=== PATIENT | female | born 1960 | race Hispanic/Latino ===

== ENCOUNTER 2017-09-10 15:14 | Inpatient (IN) | payer MEDICARE ==
[2017-09-10 16:45] LABS: Basophils % (Auto) 0.1 % (0.0-1.8); Eosinophils % (Auto) 0.1 % (0.0-4.3); Hematocrit 38.4 % (30.3-42.9); Hemoglobin 12.7 gm/dl (10.1-14.3); Mean Corpuscular HGB Conc 33 % (30-34); Mean Corpuscular Hemoglobin 31 pg (28-32); Mean Corpuscular Volume 93 fl (79-97); Platelet Count 296 K/mm3 (140-440); Red Blood Count 4.14 M/mm3 (3.65-5.03); Red Cell Distribution Width 13.1 % (13.2-15.2); White Blood Count 13.6 K/mm3 (4.5-11.0)
[2017-09-10 17:07] LABS: Calcium 9.5 mg/dL (8.4-10.2); Chloride 80.8 mmol/L (98-107); Potassium 5.6 mmol/L (3.6-5.0)
[2017-09-10] MEDS ORDERED: NACL 0.9% 1000 ML 1,000 ML IV ONE (17:09)
[2017-09-10] MEDS ORDERED: NACL 0.9% 1000 ML 2,000 ML IV ONE (17:12)
--- NOTE | 2017-09-10 17:16 | Emergency Department Report ---
ED General Adult HPI - General Chief complaint: Hyperglycemia Stated complaint: HIGH BLOOD SUGAR Time Seen by Provider: 09/10/17 17:02 Source: patient, family, EMS (ems notes not available at time of chart dictation), RN notes reviewed Mode of arrival: Stretcher Limitations: Altered Mental Status - History of Present Illness Initial comments: This is a 56-year-old female, patient previously unknown to this provider, primary care doctor is Dr. Whitney The patient is brought to the hospital by EMS, altered mental status, she is accompanied by her niece, Mrs. Patti Jefferson; [phone] Patient has a complaint of weakness and hyperglycemia. Her symptoms are constant, and do not have exacerbating or relieving factors that she is aware of. She admits to headache, cough, shortness of breath, dysuria. The patient's niece comes to me separately, and endorses concerned that the patient might be suicidal. She further reports that she is concerned that the patient allowed herself to deliberately become ill by not taking her medications correctly. When I asked the patient about this, she does admit "I question why I am here." She is evasive about suicidality. She does state that she is not homicidal. Laboratory studies demonstrated acidosis, hyperglycemia, anion gap, suggestive of diabetic ketoacidosis. She was found to be in A. fib with RVR, however given her DKA acidosis, this may be metabolically given. She is certainly dehydrated, and appears quite frail, therefore I do not believe that a negative chronotropic/inotrope would be beneficial to her, and I think that aggressive IV fluid resuscitation would be much more beneficial to this patient. Patient is placed on a 1013, I will defer to the inpatient team to follow-up on psychiatric consultation as the patient requires medical stabilization at this time. Case is presented to the critical care physician, Dr. Abreu, who agrees with placement into the intensive care unit. Patient currently on an insulin drip, and care is presents to the Hospital physician, Dr. Salas, who accepted the patient to the medical service for diabetic ketoacidosis -: Gradual Consistency: constant Improves with: none Worsens with: none Associated Symptoms: confusion, cough, headaches, loss of appetite, malaise, shortness of breath, weakness - Related Data Allergies Allergy/AdvReac Type Severity Reaction Status Date / Time zolpidem [From Ambien] Allergy Hives Verified 09/10/17 15:34 acetaminophen AdvReac Vomiting Verified 09/10/17 15:34 [From Tylenol-Codeine #3] butalbital AdvReac Rash Verified 09/10/17 15:34 codeine AdvReac Vomiting Verified 09/10/17 15:34 [From Tylenol-Codeine #3] ibuprofen [From Motrin] AdvReac Vomiting Verified 09/10/17 15:34 latex AdvReac Hives Verified 09/10/17 15:34 orange juice AdvReac Rash Verified 09/10/17 15:34 pravastatin AdvReac Hives Verified 09/10/17 15:34 Sulfa (Sulfonamide AdvReac Hives Verified 09/10/17 15:34 Antibiotics) tomato AdvReac Rash Verified 09/10/17 15:34 plastic tape AdvReac Hives Uncoded 09/10/17 15:34 ED Review of Systems ROS: Stated complaint: HIGH BLOOD SUGAR Other details as noted in HPI Constitutional: malaise Eyes: denies: eye discharge ENT: denies: epistaxis Respiratory: shortness of breath Cardiovascular: denies: chest pain Gastrointestinal: abdominal pain Musculoskeletal: arthralgia, myalgia Skin: denies: lesions Neurological: weakness Psychiatric: depression ED Past Medical Hx - Past Medical History Previous Medical History?: Yes Hx Diabetes: Yes Hx of Cancer: Yes (right breast 2009) Hx Arthritis: Yes - Surgical History Past Surgical History?: Yes Additional Surgical History: Heart surgery to remove tumor 2012 - Social History Smoking Status: Never Smoker Substance Use Type: None ED Physical Exam - General Limitations: Altered Mental Status General appearance: in no apparent distress - Head Head exam: Present: atraumatic, normocephalic - Eye Eye exam: Present: normal appearance - ENT ENT exam: Present: mucous membranes dry - Neck Neck exam: Present: normal inspection, full ROM. Absent: tenderness, meningismus - Respiratory Respiratory exam: Present: normal lung sounds bilaterally. Absent: respiratory distress, wheezes, rales, rhonchi, stridor, chest wall tenderness - Cardiovascular Cardiovascular Exam: Present: tachycardia, irregular rhythm, normal heart sounds. Absent: systolic murmur, diastolic murmur, rubs, gallop - GI/Abdominal GI/Abdominal exam: Present: soft, normal bowel sounds. Absent: distended, tenderness, guarding, rebound, rigid - Extremities Exam Extremities exam: Present: normal inspection, full ROM. Absent: calf tenderness - Back Exam Back exam: Present: normal inspection. Absent: paraspinal tenderness, vertebral tenderness - Neurological Exam Neurological exam: Present: alert (alert to name. Patient cannot multiply 10 10.knows That she is in a hospital.), other (Extraocular movements intact. Tongue midline. No facial droop. Facial sensation intact to light touch in the V1, V2, V3 distribution bilaterally. 5 and 5 strength in 4 extremities.. Sensation is intact to light touch in 4 extremities.) - Psychiatric Psychiatric exam: Present: depressed. Absent: homicidal ideation - Skin Skin exam: Present: warm, dry, intact, normal color. Absent: rash ED Course Vital Signs 09/10/17 09/10/17 09/10/17 17:00 17:15 17:30 Blood Pressure 106/44 101/59 101/59 O2 Sat by Pulse 97 Oximetry 09/10/17 18:03 Blood Pressure 104/51 O2 Sat by Pulse 97 Oximetry ED Medical Decision Making - Lab Data Result diagrams: 09/10/17 Unknown 09/10/17 Unknown Vital Signs 09/10/17 09/10/17 09/10/17 17:00 17:15 17:30 Blood Pressure 106/44 101/59 101/59 O2 Sat by Pulse 97 Oximetry 09/10/17 18:03 Blood Pressure 104/51 O2 Sat by Pulse 97 Oximetry Labs 09/10/17 09/10/17 09/10/17 15:59 17:51 18:37 WBC RBC Hgb Hct MCV MCH MCHC RDW Plt Count Lymph % (Auto) [place] % (Auto) Eos % (Auto) Baso % (Auto) Lymph # [place] # Eos # Baso # Seg Neutrophils % Seg Neutrophils # VBG pH Sodium 126 L Potassium 5.9 H Chloride 79.9 L Carbon Dioxide 8 L* Anion Gap 44 BUN 38 H Creatinine 1.4 H Estimated GFR 39 BUN/Creatinine Ratio 27 Glucose 677 H* POC Glucose > 500 H > 500 H Calcium 9.3 Magnesium 09/10/17 09/10/17 09/10/17 Unknown Unknown Unknown WBC 13.6 H RBC 4.14 Hgb 12.7 Hct 38.4 MCV 93 MCH 31 MCHC 33 RDW 13.1 L Plt Count 296 Lymph % (Auto) 5.5 L [place] % (Auto) 4.8 Eos % (Auto) 0.1 Baso % (Auto) 0.1 Lymph # 0.8 L [place] # 0.7 Eos # 0.0 Baso # 0.0 Seg Neutrophils % 89.5 H Seg Neutrophils # 12.2 H VBG pH 7.163 L* Sodium 127 L Potassium 5.6 H Chloride 80.8 L Carbon Dioxide 11 L Anion Gap 41 BUN 37 H Creatinine 1.4 H Estimated GFR 39 BUN/Creatinine Ratio 26 Glucose 679 H* POC Glucose Calcium 9.5 Magnesium 09/10/17 Unknown WBC RBC Hgb Hct MCV MCH MCHC RDW Plt Count Lymph % (Auto) [place] % (Auto) Eos % (Auto) Baso % (Auto) Lymph # [place] # Eos # Baso # Seg Neutrophils % Seg Neutrophils # VBG pH Sodium Potassium Chloride Carbon Dioxide Anion Gap BUN Creatinine Estimated GFR BUN/Creatinine Ratio Glucose POC Glucose Calcium Magnesium 1.90 - EKG Data 09/10/17 18:56 Atrial fibrillation, rapid ventricular response, 142 bpm, no prior for comparison, abnormal - Radiology Data Radiology results: report reviewed, image reviewed interpreted by me: X-ray the chest is negative. Noncontrast CT scan of the brain is negative - Medical Decision Making Differential diagnosis: Diabetic ketoacidosis, homicidality, suicidality, mood disorder, depression, pneumonia, urinary tract infection, dehydration Critical Care Time: Yes Critical care time in (mins) excluding proc time.: 35 Critical care attestation.: If time is entered above; I have spent that time in minutes in the direct care of this critically ill patient, excluding procedure time. ED Disposition Clinical Impression: DKA (diabetic ketoacidoses), Encephalopathy Disposition: DC-09 OP ADMIT IP TO THIS HOSP Is pt being admited?: Yes Condition: Critical
[2017-09-10] MEDS ORDERED: D50W (25GM) Syringe IV PRN ×3 (17:19→21:40)
[2017-09-10] MEDS ORDERED: NovoLIN R 100 UNITS in NACL 0.9% 99 ML IV SCH ×2 (18:00→22:00)
[2017-09-10 18:30] LABS: Calcium 9.3 mg/dL (8.4-10.2); Chloride 79.9 mmol/L (98-107); Potassium 5.9 mmol/L (3.6-5.0)
--- NOTE | 2017-09-10 18:35 | Cat Scan Report ---
FINAL REPORT EXAM: CT HEAD/BRAIN WO CON HISTORY: off balance for a few days, ams TECHNIQUE: CT head without contrast PRIORS: None. FINDINGS: No acute intra-axial or extra-axial hemorrhage is identified. There is no evidence of midline shift or mass effect. The ventricles and sulci are within normal limits. [place]-white matter differentiation is intact. No acute parenchymal abnormalities seen. Bony calvarium is grossly intact. Visualized portions of the mastoids and paranasal sinuses are unremarkable. IMPRESSION: Negative CT head
[2017-09-10 19:18] LABS: Magnesium 1.7 mg/dL (1.7-2.3); Phosphorous 5.8 mg/dL (2.5-4.5)
[2017-09-10 21:09] LABS: Calcium 8.1 mg/dL (8.4-10.2); Potassium 5.5 mmol/L (3.6-5.0)
[2017-09-10] MEDS ORDERED: MILK OF MAGNESIA PO PRN (21:29)
[2017-09-10] MEDS ORDERED: TYLENOL PO PRN (21:29)
[2017-09-10] MEDS ORDERED: ZOFRAN IV PRN (21:29)
[2017-09-10] MEDS ORDERED: DULCOLAX PR PRN (21:29)
--- NOTE | 2017-09-10 21:29 | History and Physical Report ---
History of Present Illness Date of examination: 09/10/17 Date of admission: 09/10/17 17:59 Chief complaint: cc FEELING VERY WEAK 1 day Altered memtal status 1 day History of present illness: History of Present Illness The patient is brought to the hospital by EMS, altered mental status, she is accompanied by her niece, Mrs. Patti Jefferson; [phone] Patient has a complaint of weakness and hyperglycemia. Her symptoms are constant, and do not have exacerbating or relieving factors that she is aware of. She admits to headache, cough, shortness of breath, dysuria.Nausea present The patient's niece is concerned that the patient might be suicidal. She further reports that she is concerned that the patient allowed herself to deliberately become ill by not taking her medications correctly. She does state that she is not homicidal. Laboratory studies demonstrated acidosis, hyperglycemia, anion gap, suggestive of diabetic ketoacidosis. Past Medical History Previous Medical History?: Yes Hx Diabetes: Yes Hx of Cancer: Yes (right breast 2008) Hx Arthritis: Yes Surgical History Past Surgical History?: Yes Additional Surgical History: Heart surgery to remove tumor 2012 Social History Smoking Status: Never Smoker Substance Use Type: None Review of Systems Stated complaint: HIGH BLOOD SUGAR Other details as noted in HPI Constitutional: malaise Eyes: denies: eye discharge ENT: denies: epistaxis Respiratory: shortness of breath Cardiovascular: denies: chest pain Gastrointestinal: abdominal pain Musculoskeletal: arthralgia, myalgia Skin: denies: lesions Neurological: weakness Psychiatric: depression Medications and Allergies Allergies Allergy/AdvReac Type Severity Reaction Status Date / Time zolpidem [From Ambien] Allergy Hives Verified 09/10/17 15:34 acetaminophen AdvReac Vomiting Verified 09/10/17 15:34 [From Tylenol-Codeine #3] butalbital AdvReac Rash Verified 09/10/17 15:34 codeine AdvReac Vomiting Verified 09/10/17 15:34 [From Tylenol-Codeine #3] ibuprofen [From Motrin] AdvReac Vomiting Verified 09/10/17 15:34 latex AdvReac Hives Verified 09/10/17 15:34 orange juice AdvReac Rash Verified 09/10/17 15:34 pravastatin AdvReac Hives Verified 09/10/17 15:34 Sulfa (Sulfonamide AdvReac Hives Verified 09/10/17 15:34 Antibiotics) tomato AdvReac Rash Verified 09/10/17 15:34 plastic tape AdvReac Hives Uncoded 09/10/17 15:34 Active Meds: Active Medications Dextrose (D50w (25gm) Syringe) 0 ml IV PRN PRN PRN Reason: Hypoglycemia Insulin Human Regular 100 (units/ Sodium Chloride) 100 mls @ 1 mls/hr IV TITR KATHERINE; 1 UNITS/HR PRN Reason: Protocol Last Admin: 09/10/17 20:52 Dose: 1 units/hr, 1 mls/hr Exam - Constitutional Vitals: Temp Pulse Resp BP Pulse Ox 97.7 F 109 H 16 104/51 98 09/10/17 18:58 09/10/17 18:46 09/10/17 18:46 09/10/17 18:46 09/10/17 18:46 General appearance: Present: no acute distress, well-nourished - EENT Eyes: Present: PERRL ENT: hearing intact, clear oral mucosa, other (Tongue dry) - Neck Neck: Present: supple, normal ROM - Respiratory Respiratory effort: normal Respiratory: bilateral: CTA - Cardiovascular Heart rate: 90 Rhythm: regular Heart Sounds: Present: S1 & S2. Absent: rub, click - Extremities Extremities: pulses symmetrical, No edema Peripheral Pulses: within normal limits - Abdominal General gastrointestinal: Present: soft, non-tender, non-distended, normal bowel sounds Female genitourinary: Present: normal - Rectal Rectal Exam: deferred - Integumentary Integumentary: Present: clear, warm, dry - Musculoskeletal Musculoskeletal: gait normal, strength equal bilaterally - Psychiatric Psychiatric: memory intact, depressed - Neurologic Neurologic: CNII-XII intact, moves all extremities - Allied Health Allied health notes reviewed: nursing, case management Results - Labs CBC & Chem 7: 09/11/17 03:43 09/11/17 03:43 Labs: Laboratory Last Values WBC 13.6 K/mm3 (4.5-11.0) H 09/10/17 Unknown RBC 4.14 M/mm3 (3.65-5.03) 09/10/17 Unknown Hgb 12.7 gm/dl (10.1-14.3) 09/10/17 Unknown Hct 38.4 % (30.3-42.9) 09/10/17 Unknown MCV 93 fl (79-97) 09/10/17 Unknown MCH 31 pg (28-32) 09/10/17 Unknown MCHC 33 % (30-34) 09/10/17 Unknown RDW 13.1 % (13.2-15.2) L 09/10/17 Unknown Plt Count 296 K/mm3 (140-440) 09/10/17 Unknown Lymph % (Auto) 5.5 % (13.4-35.0) L 09/10/17 Unknown [place] % (Auto) 4.8 % (0.0-7.3) 09/10/17 Unknown Eos % (Auto) 0.1 % (0.0-4.3) 09/10/17 Unknown Baso % (Auto) 0.1 % (0.0-1.8) 09/10/17 Unknown Lymph # 0.8 K/mm3 (1.2-5.4) L 09/10/17 Unknown [place] # 0.7 K/mm3 (0.0-0.8) 09/10/17 Unknown Eos # 0.0 K/mm3 (0.0-0.4) 09/10/17 Unknown Baso # 0.0 K/mm3 (0.0-0.1) 09/10/17 Unknown Seg Neutrophils % 89.5 % (40.0-70.0) H 09/10/17 Unknown Seg Neutrophils # 12.2 K/mm3 (1.8-7.7) H 09/10/17 Unknown VBG pH 7.163 (7.320-7.420) L* 09/10/17 Unknown Sodium 127 mmol/L (137-145) L 09/10/17 Unknown Potassium 5.6 mmol/L (3.6-5.0) H 09/10/17 Unknown Chloride 80.8 mmol/L (98-107) L 09/10/17 Unknown Carbon Dioxide 11 mmol/L (22-30) L 09/10/17 Unknown Anion Gap 41 mmol/L 09/10/17 Unknown BUN 37 mg/dL (7-17) H 09/10/17 Unknown Creatinine 1.4 mg/dL (0.7-1.2) H 09/10/17 Unknown Estimated GFR 39 ml/min 09/10/17 Unknown BUN/Creatinine Ratio 26 % 09/10/17 Unknown Glucose 679 mg/dL (65-100) H* 09/10/17 Unknown POC Glucose > 500 (70-105) H 09/10/17 18:37 Lactic Acid 1.80 mmol/L (0.7-2.0) 09/10/17 17:36 Calcium 9.5 mg/dL (8.4-10.2) 09/10/17 Unknown Phosphorus 5.80 mg/dL (2.5-4.5) H 09/10/17 17:51 Magnesium 1.90 mg/dL (1.7-2.3) 09/10/17 Unknown Salicylates 0.5 mg/dL (2.8-20.0) L 09/10/17 17:36 Acetaminophen < 15.0 ug/mL (10.0-30.0) 09/10/17 17:36 Short CBC 09/10/17 09/11/17 Range/Units Unknown 03:43 WBC 13.6 H 9.1 (4.5-11.0) K/mm3 Hgb 12.7 10.1 (10.1-14.3) gm/dl Hct 38.4 28.9 L D (30.3-42.9) % Plt Count 296 228 (140-440) K/mm3 BMP 09/10/17 09/10/17 09/10/17 17:51 20:44 23:18 Sodium 126 L 129 L 133 L Potassium 5.9 H 5.5 H 4.0 D Chloride 79.9 L 91.0 L 95.6 L Carbon Dioxide 8 L* 10 L 16 L BUN 38 H 32 H 28 H Creatinine 1.4 H 1.1 1.1 Glucose 677 H* 379 H 219 H Calcium 9.3 8.1 L 8.4 09/10/17 09/11/17 Unknown 03:43 Sodium 127 L 133 L Potassium 5.6 H 4.4 Chloride 80.8 L 100.5 Carbon Dioxide 11 L 16 L BUN 37 H 21 H Creatinine 1.4 H 0.9 Glucose 679 H* 189 H Calcium 9.5 7.5 L Urine 09/11/17 Range/Units 01:54 Urine Color Yellow (Yellow) Urine pH 5.0 (5.0-7.0) Ur Specific [place] 1.010 (1.003-1.030) Urine Protein <15 mg/dl (Negative) mg/dL Urine Glucose (UA) >=500 (Negative) mg/dL - Imaging and Cardiology Chest x-ray: report reviewed (NAF) CT Scan - head: report reviewed (NAF) Assessment and Plan Assessment and plan: The high probability of a clinically significant, sudden or life threatening deterioration of the [CV, pulmonary] system(s) required my full and direct attention, intervention and personal management. The aggregate critical care time was [34] minutes. This time is in addition to time spent performing reported procedures but includes the following: [x] Data Review and interpretation [x] Patient assessment and monitoring of vital signs [x] Documentation [x] Medication orders and management Advance Directives: Yes (Full code) VTE prophylaxis?: Chemical Plan of care discussed with patient/family: Yes - Patient Problems (1) Encephalopathy Current Visit: Yes Status: Acute Plan to address problem: Sec to severe Metabolic Acidosis due to uncontrolled Blood Glucose levels. DKA protocol initiated Bicarb is 8 (2) DKA (diabetic ketoacidoses) Current Visit: Yes Status: Acute Qualifiers: Diabetes mellitus type: type 2 Diabetes mellitus complication detail: D Plan to address problem: DKA protocol initiated.Insulin drip started. IV fluids initiated (3) Dehydration, moderate Current Visit: Yes Status: Acute Plan to address problem: IV fluids for now (4) Suicidal ideation Current Visit: Yes Status: Acute Plan to address problem: consult requested (5) DVT prophylaxis Current Visit: Yes Status: Acute Plan to address problem: On Lovenox
[2017-09-10] MEDS ORDERED: NACL 0.9% 1000 ML 1,000 ML ONE (21:51)
[2017-09-10] MEDS: PERCOCET 5/325 PO PRN (21:54)
[2017-09-10] MEDS ORDERED: D5W/0.45% NACL/KCL 20 MEQ 20 MEQ/1,000 ML BAG IV SCH (22:00)
[2017-09-10] MEDS ORDERED: NACL 0.9% 1000 ML 1,000 ML IV SCH (22:00)
[2017-09-10 22:15] LABS: Magnesium 1.7 mg/dL (1.7-2.3); Phosphorous 5.8 mg/dL (2.5-4.5)
[2017-09-10 23:52] LABS: Calcium 8.4 mg/dL (8.4-10.2); Chloride 95.6 mmol/L (98-107); Magnesium 1.4 mg/dL (1.7-2.3); Phosphorous 2.6 mg/dL (2.5-4.5)
[2017-09-11 02:03] LABS: Urine Drugs of Abuse Note Disclamer
[2017-09-11 02:10] LABS: Bacteria,Urine 1+ /HPF (Negative); Bilirubin,Urine NEG (Negative); Blood,Urine SM (Negative); Ketones,Urine 20 mg/dL (Negative); Leukocyte Esterase,Urine NEG (Negative); Mucus,Urine FEW /HPF; Nitrite,Urine NEG (Negative); Protein,Urine <15 mg/dL mg/dL (Negative); RBC,Urine < 1.0 /HPF (0.0-6.0); Urobilinogen,Urine < 2.0 mg/dL (<2.0)
[2017-09-11 04:05] LABS: Basophils % (Auto) 0.5 % (0.0-1.8); Eosinophils % (Auto) 0.1 % (0.0-4.3); Hematocrit 28.9 % (30.3-42.9); Hemoglobin 10.1 gm/dl (10.1-14.3); Mean Corpuscular HGB Conc 35 % (30-34); Mean Corpuscular Hemoglobin 31 pg (28-32); Mean Corpuscular Volume 89 fl (79-97); Platelet Count 228 K/mm3 (140-440); Red Blood Count 3.24 M/mm3 (3.65-5.03); Red Cell Distribution Width 12.9 % (13.2-15.2); White Blood Count 9.1 K/mm3 (4.5-11.0)
[2017-09-11 04:22] LABS: Anion Gap 21 mmol/L; BUN/Creatinine Ratio 23; Blood Urea Nitrogen 21 mg/dL (7-17); Calcium 7.5 mg/dL (8.4-10.2); Carbon Dioxide 16 mmol/L (22-30); Chloride 100.5 mmol/L (98-107); Glucose 189 mg/dL (65-100); Potassium 4.4 mmol/L (3.6-5.0); Sodium 133 mmol/L (137-145)
[2017-09-11 07:54] LABS: BUN/Creatinine Ratio 23; Blood Urea Nitrogen 18 mg/dL (7-17); Calcium 8.1 mg/dL (8.4-10.2); Carbon Dioxide 23 mmol/L (22-30); Chloride 103.4 mmol/L (98-107); Glucose 91 mg/dL (65-100); Sodium 137 mmol/L (137-145)
[2017-09-11 07:59] LABS: Anion Gap 15 mmol/L
[2017-09-11] MEDS ORDERED: REGLAN IV PRN (09:18)
[2017-09-11] MEDS ORDERED: LEVEMIR SUB-Q ONE (09:18)
--- NOTE | 2017-09-11 09:24 | Progress Note ---
Assessment and Plan Assessment and plan: Patient is a 56-year-old woman with history of type 1 insulin-dependent diabetes mellitus, ?depression, osteoporosis, chronic pain syndrome with multiple drug allergies and right breast cancer who presents with high blood sugars. There was a concern of suicidal ideation so 1013 was ordered by ED physician, Dr. Melo. She was found to have DKA and treated with insulin drip. Current corrected anion gap corrected is 11 so insulin drip stopped and started long-acting Levemir. CT head read as negative, chest x-ray pending -DKA due to noncompliance, resolved with insulin drip: Counseled on compliance, started long-acting insulin -Acute metabolic encephalopathy due to above, resolved -Afib RVR mentioned by ED physician Dr. Melo but sinus tach on EKG: will place pt on monitor tech -Metabolic acidosis anion gap: Treatment with insulin -Suicidal ideation: Consulted mental health, continue 1013 -GI prophylaxis: Added Protonix -DVT prophylaxis: SCDs and subcutaneous Lovenox Full code Disposition: Continue inpatient care, downgrade from ICU to med surg with remote. The high probability of a clinically significant, sudden or life threatening deterioration of the [] system(s) required my full and direct attention, intervention and personal management. The aggregate critical care time was [33] minutes. This time is in addition to time spent performing reported procedures but includes the following: [] Data Review and interpretation [] Patient assessment and monitoring of vital signs [] Documentation [] Medication orders and management History Interval history: Patient was seen and examined. Follow-up on current diagnosis/high blood sugars. Overnight uneventful. Patient denies any chest pain, shortness breath , nausea/vomiting or severe headaches. Imaging, nursing note, chart, labs and old chart reviewed. Discussed with patient. Hospitalist Physical - Physical exam Narrative exam: GEN: WDWN, NAD, AWAKE, ALERT, ORIENTATED x 3 HEENT: NCAT, EOMI, PERRL, OP Clear NECK: supple, no adenopathy, no thyromegaly, no JVD CVS/HEART: Regular tachycardia, NORMAL S1S2, NO JVD, pulses present bilaterally CHEST/LUNGS: CTA B, Symmetrical chest expansion, good air entry bilaterally GI/Abdomen: soft, NTND, good bowel sounds, no guarding or rebound /Bladder: no suprapubic tenderness, no CVA or paraspinal tenderness EXT/Skin: no c/c/e, no obvious rash MSK: FROM x 4 Neuro: CN 2-12 grossly intact, no new focal deficits Psych: anxious - Constitutional Vitals: Temp Pulse Resp BP Pulse Ox 98.5 F 122 H 18 107/66 98 09/11/17 07:15 09/11/17 07:41 09/11/17 07:41 09/11/17 07:41 09/11/17 07:41 General appearance: Present: no acute distress, well-nourished Results - Labs CBC & Chem 7: 09/11/17 03:43 09/11/17 07:25 Labs: Laboratory Last Values WBC 9.1 K/mm3 (4.5-11.0) 09/11/17 03:43 RBC 3.24 M/mm3 (3.65-5.03) L 09/11/17 03:43 Hgb 10.1 gm/dl (10.1-14.3) 09/11/17 03:43 Hct 28.9 % (30.3-42.9) L D 09/11/17 03:43 MCV 89 fl (79-97) 09/11/17 03:43 MCH 31 pg (28-32) 09/11/17 03:43 MCHC 35 % (30-34) H 09/11/17 03:43 RDW 12.9 % (13.2-15.2) L 09/11/17 03:43 Plt Count 228 K/mm3 (140-440) 09/11/17 03:43 Lymph % (Auto) 15.0 % (13.4-35.0) 09/11/17 03:43 [place] % (Auto) 10.1 % (0.0-7.3) H 09/11/17 03:43 Eos % (Auto) 0.1 % (0.0-4.3) 09/11/17 03:43 Baso % (Auto) 0.5 % (0.0-1.8) 09/11/17 03:43 Lymph # 1.4 K/mm3 (1.2-5.4) 09/11/17 03:43 [place] # 0.9 K/mm3 (0.0-0.8) H 09/11/17 03:43 Eos # 0.0 K/mm3 (0.0-0.4) 09/11/17 03:43 Baso # 0.0 K/mm3 (0.0-0.1) 09/11/17 03:43 Seg Neutrophils % 74.3 % (40.0-70.0) H 09/11/17 03:43 Seg Neutrophils # 6.8 K/mm3 (1.8-7.7) 09/11/17 03:43 VBG pH 7.163 (7.320-7.420) L* 09/10/17 Unknown Sodium 137 mmol/L (137-145) 09/11/17 07:25 Potassium 4.0 mmol/L (3.6-5.0) 09/11/17 07:25 Chloride 103.4 mmol/L (98-107) 09/11/17 07:25 Carbon Dioxide 23 mmol/L (22-30) D 09/11/17 07:25 Anion Gap 15 mmol/L 09/11/17 07:25 BUN 18 mg/dL (7-17) H 09/11/17 07:25 Creatinine 0.8 mg/dL (0.7-1.2) 09/11/17 07:25 Estimated GFR > 60 ml/min 09/11/17 07:25 BUN/Creatinine Ratio 23 % 09/11/17 07:25 Glucose 91 mg/dL (65-100) 09/11/17 07:25 POC Glucose 97 (70-105) 09/11/17 08:07 Hemoglobin A1c 9.1 % (4-6) H 09/10/17 Unknown Lactic Acid 1.80 mmol/L (0.7-2.0) 09/10/17 17:36 Calcium 8.1 mg/dL (8.4-10.2) L 09/11/17 07:25 Phosphorus 2.60 mg/dL (2.5-4.5) D 09/10/17 23:18 Magnesium 1.90 mg/dL (1.7-2.3) 09/10/17 Unknown Urine Color Yellow (Yellow) 09/11/17 01:54 Urine Turbidity Clear (Clear) 09/11/17 01:54 Urine pH 5.0 (5.0-7.0) 09/11/17 01:54 Ur Specific [place] 1.010 (1.003-1.030) 09/11/17 01:54 Urine Protein <15 mg/dl mg/dL (Negative) 09/11/17 01:54 Urine Glucose (UA) >=500 mg/dL (Negative) 09/11/17 01:54 Urine Ketones 20 mg/dL (Negative) 09/11/17 01:54 Urine Blood Sm (Negative) 09/11/17 01:54 Urine Nitrite Neg (Negative) 09/11/17 01:54 Ur Reducing Substances Not Reportable 09/11/17 01:54 Urine Bilirubin Neg (Negative) 09/11/17 01:54 Urine Ictotest Not Reportable 09/11/17 01:54 Urine Urobilinogen < 2.0 mg/dL (<2.0) 09/11/17 01:54 Ur Leukocyte Esterase Neg (Negative) 09/11/17 01:54 Urine WBC (Auto) 1.0 /HPF (0.0-6.0) 09/11/17 01:54 Urine RBC (Auto) < 1.0 /HPF (0.0-6.0) 09/11/17 01:54 U Epithel Cells (Auto) 3.0 /HPF (0-13.0) 09/11/17 01:54 Urine Bacteria (Auto) 1+ /HPF (Negative) 09/11/17 01:54 Urine Mucus Few /HPF 09/11/17 01:54 Urine Yeast (Budding) Few /HPF 09/11/17 01:54 Salicylates 0.5 mg/dL (2.8-20.0) L 09/10/17 17:36 Urine Opiates Screen Presumptive negative 09/11/17 01:54 Urine Methadone Screen Presumptive negative 09/11/17 01:54 Acetaminophen < 15.0 ug/mL (10.0-30.0) 09/10/17 17:36 Ur Barbiturates Screen Presumptive negative 09/11/17 01:54 Ur Phencyclidine Scrn Presumptive negative 09/11/17 01:54 Ur Amphetamines Screen Presumptive negative 09/11/17 01:54 U Benzodiazepines Scrn Presumptive positive 09/11/17 01:54 Urine Cocaine Screen Presumptive negative 09/11/17 01:54 U Marijuana (THC) Screen Presumptive negative 09/11/17 01:54 Drugs of Abuse Note Disclamer 09/11/17 01:54
[2017-09-11] MEDS ORDERED: D50W (25GM) Syringe IV PRN (09:31)
--- NOTE | 2017-09-11 09:31 | XRay Report ---
AP CHEST :09/10/17 17:11:00 CLINICAL: Cough. COMPARISON:None. FINDINGS: Normal heart and pulmonary vasculature. Median sternotomy wires. The lungs are normally expanded and clear. The bones and soft tissues are unremarkable. Right upper quadrant surgical clips. IMPRESSION: No acute cardiopulmonary process.
[2017-09-11] MEDS: PROTONIX PO SCH (09:52)
[2017-09-11] MEDS ORDERED: NACL 0.9% 1000 ML 1,000 ML IV SCH (10:00)
[2017-09-11] MEDS: NOVOLOG SUB-Q SCH ×2 (12:31→18:46)
--- NOTE | 2017-09-11 16:42 | Consultation ---
History of Present Illness Consult date: 09/11/17 Medications and Allergies Allergies Allergy/AdvReac Type Severity Reaction Status Date / Time zolpidem [From Ambien] Allergy Hives Verified 09/10/17 15:34 acetaminophen AdvReac Vomiting Verified 09/10/17 15:34 [From Tylenol-Codeine #3] butalbital AdvReac Rash Verified 09/10/17 15:34 codeine AdvReac Vomiting Verified 09/10/17 15:34 [From Tylenol-Codeine #3] ibuprofen [From Motrin] AdvReac Vomiting Verified 09/10/17 15:34 latex AdvReac Hives Verified 09/10/17 15:34 orange juice AdvReac Rash Verified 09/10/17 15:34 pravastatin AdvReac Hives Verified 09/10/17 15:34 Sulfa (Sulfonamide AdvReac Hives Verified 09/10/17 15:34 Antibiotics) tomato AdvReac Rash Verified 09/10/17 15:34 plastic tape AdvReac Hives Uncoded 09/10/17 15:34 Active Meds: Active Medications Bisacodyl (Dulcolax) 10 mg GA QDAY PRN PRN Reason: Constipation unrelieved by [facility] Dextrose (D50w (25gm) Syringe) 50 ml IV PRN PRN PRN Reason: Hypoglycemia Sodium Chloride (Nacl 0.9% 1000 Ml) 1,000 mls @ 100 mls/hr IV DIRECT KATHERINE Insulin Aspart (Novolog) 0 units SUB-Q Q6HR KATHERINE PRN Reason: Protocol Last Admin: 09/11/17 12:31 Dose: 3 units Insulin Detemir (Levemir) 10 units SUB-Q QHS KATHERINE Magnesium Hydroxide (Milk Of Magnesia) 30 ml PO Q4H PRN PRN Reason: Constipation Metoclopramide HCl (Reglan) 10 mg IV Q8H PRN PRN Reason: Nausea And Vomiting Morphine Sulfate (Morphine) 2 mg IV Q4H PRN PRN Reason: Pain, Moderate (4-6) Ondansetron HCl (Zofran) 4 mg IV Q8H PRN PRN Reason: N/V unrelieved by Reglan Oxycodone/Acetaminophen (Percocet 5/325) 1 tab PO Q6H PRN PRN Reason: Pain, Moderate (4-6) Last Admin: 09/10/17 21:54 Dose: 1 tab Pantoprazole Sodium (Protonix) 40 mg PO QDAY KATHERINE Last Admin: 09/11/17 09:52 Dose: 40 mg Physical Examination Vital signs: Vital Signs BP 106/44 09/10/17 17:00 Results - Laboratory Findings CBC and BMP: 09/11/17 03:43 09/11/17 07:25 Abnormal lab findings: Abnormal Labs 09/10/17 09/10/17 09/10/17 18:37 20:44 20:44 WBC RBC Hct MCHC RDW Lymph % (Auto) [place] % (Auto) Lymph # [place] # Seg Neutrophils % Seg Neutrophils # VBG pH Sodium 129 L Potassium 5.5 H Chloride 91.0 L Carbon Dioxide 10 L BUN 32 H Creatinine Glucose 379 H POC Glucose > 500 H Hemoglobin A1c Calcium 8.1 L Phosphorus 5.80 H Magnesium 09/10/17 09/10/17 09/10/17 22:05 23:15 23:18 WBC RBC Hct MCHC RDW Lymph % (Auto) [place] % (Auto) Lymph # [place] # Seg Neutrophils % Seg Neutrophils # VBG pH Sodium 133 L Potassium Chloride 95.6 L Carbon Dioxide 16 L BUN 28 H Creatinine Glucose 219 H POC Glucose 432 H 218 H Hemoglobin A1c Calcium Phosphorus Magnesium 09/10/17 09/10/17 09/10/17 23:18 Unknown Unknown WBC 13.6 H RBC Hct MCHC RDW 13.1 L Lymph % (Auto) 5.5 L [place] % (Auto) Lymph # 0.8 L [place] # Seg Neutrophils % 89.5 H Seg Neutrophils # 12.2 H VBG pH Sodium 127 L Potassium 5.6 H Chloride 80.8 L Carbon Dioxide 11 L BUN 37 H Creatinine 1.4 H Glucose 679 H* POC Glucose Hemoglobin A1c Calcium Phosphorus Magnesium 1.40 L 09/10/17 09/10/17 09/11/17 Unknown Unknown 00:51 WBC RBC Hct MCHC RDW Lymph % (Auto) [place] % (Auto) Lymph # [place] # Seg Neutrophils % Seg Neutrophils # VBG pH 7.163 L* Sodium Potassium Chloride Carbon Dioxide BUN Creatinine Glucose POC Glucose 108 H Hemoglobin A1c 9.1 H Calcium Phosphorus Magnesium 09/11/17 09/11/17 09/11/17 02:33 03:43 03:43 WBC RBC 3.24 L Hct 28.9 L D MCHC 35 H RDW 12.9 L Lymph % (Auto) [place] % (Auto) 10.1 H Lymph # [place] # 0.9 H Seg Neutrophils % 74.3 H Seg Neutrophils # VBG pH Sodium 133 L Potassium Chloride Carbon Dioxide 16 L BUN 21 H Creatinine Glucose 189 H POC Glucose 125 H Hemoglobin A1c Calcium 7.5 L Phosphorus Magnesium 09/11/17 09/11/17 09/11/17 04:30 05:45 07:25 WBC RBC Hct MCHC RDW Lymph % (Auto) [place] % (Auto) Lymph # [place] # Seg Neutrophils % Seg Neutrophils # VBG pH Sodium Potassium Chloride Carbon Dioxide BUN 18 H Creatinine Glucose POC Glucose 180 H 136 H Hemoglobin A1c Calcium 8.1 L Phosphorus Magnesium 09/11/17 09/11/17 09:19 11:35 WBC RBC Hct MCHC RDW Lymph % (Auto) [place] % (Auto) Lymph # [place] # Seg Neutrophils % Seg Neutrophils # VBG pH Sodium Potassium Chloride Carbon Dioxide BUN Creatinine Glucose POC Glucose 195 H 187 H Hemoglobin A1c Calcium Phosphorus Magnesium
[2017-09-11] MEDS: PERCOCET 5/325 PO PRN (22:46)
[2017-09-11] MEDS: LEVEMIR SUB-Q SCH (23:17)
[2017-09-12] MEDS: NOVOLOG SUB-Q SCH ×4 (01:06→18:11)
[2017-09-12] MEDS ORDERED: CARDIZEM IV ONE ×2 (06:57→07:42)
[2017-09-12] MEDS ORDERED: CARDIZEM ONE (07:05)
[2017-09-12] MEDS: CARDIZEM PO SCH ×2 (09:00→12:30)
[2017-09-12] MEDS: PROTONIX PO SCH (10:05)
[2017-09-12] MEDS ORDERED: LOVENOX SUB-Q SCH (12:00)
[2017-09-12] MEDS: LOVENOX SUB-Q SCH ×2 (12:30→22:00)
[2017-09-12] MEDS: CARDIZEM/D5W 100MG/100ML 100 MG/100 ML BAG IV SCH (13:21)
--- NOTE | 2017-09-12 13:58 | Progress Note ---
Assessment and Plan Assessment and plan: 56-year-old female with medical history significant for diabetes mellitus, depression, atrial fibrillation, s/p post cardiac tumor removal presented to ED for DKA and afib with RVR. Patient is on 1013 for concern of suicidal ideation. DKA - Managed according to [facility] protocol and now resolved - Chronic settings to insulin Metabolic encephalopathy - Resolved - And has dementia Afib with RVR, patient stated she has history of A. fib and cardiac tumor removal - Cardiology consulted - Echo will be done and on therapeutic Lovenox Suicidal ideation - Patient is 1013 and mental health consulted - Patient wants to go home -GI prophylaxis: Added Protonix DVT prophylaxis: SCDs and therapeutic Lovenox Full code Disposition: - Patient is still in the ED hold for CCU admit. Disposition Plan: Pending ICU bed History Interval history: Patient was seen and evaluated this morning, patient is lying comfortably, no new complaints. Patient said she had a history of tumor removal from her heart and has history of atrial fibrillation and on medication. Patient said she has memory problems and doesn't remember what medication she has been taking. Hospitalist Physical - Physical exam Narrative exam: Not in cardiopulmonary distress. The patient appeared friable. Vital signs as documented. Head exam is unremarkable. No scleral icterus . Neck is without jugular venous distension, thyromegaly, or carotid bruits. Lungs are clear to auscultation. Cardiac exam reveals irregular heart rate. Tachycardia. Abdominal exam reveals normal bowel sounds, no masses, no organomegaly and no aortic enlargement. Extremities are nonedematous and both femoral and pedal pulses are normal. JOB CHECKER: Alert and oriented 3. No focal weakness. - Constitutional Vitals: Temp Pulse Resp BP Pulse Ox 98.5 F 134 H 18 119/65 98 09/11/17 07:15 09/12/17 08:59 09/12/17 11:28 09/12/17 07:29 09/12/17 11:28 General appearance: Present: no acute distress, well-nourished Results - Labs CBC & Chem 7: 09/11/17 03:43 09/11/17 07:25 Labs: Laboratory Last Values WBC 9.1 K/mm3 (4.5-11.0) 09/11/17 03:43 RBC 3.24 M/mm3 (3.65-5.03) L 09/11/17 03:43 Hgb 10.1 gm/dl (10.1-14.3) 09/11/17 03:43 Hct 28.9 % (30.3-42.9) L D 09/11/17 03:43 MCV 89 fl (79-97) 09/11/17 03:43 MCH 31 pg (28-32) 09/11/17 03:43 MCHC 35 % (30-34) H 09/11/17 03:43 RDW 12.9 % (13.2-15.2) L 09/11/17 03:43 Plt Count 228 K/mm3 (140-440) 09/11/17 03:43 Lymph % (Auto) 15.0 % (13.4-35.0) 09/11/17 03:43 [place] % (Auto) 10.1 % (0.0-7.3) H 09/11/17 03:43 Eos % (Auto) 0.1 % (0.0-4.3) 09/11/17 03:43 Baso % (Auto) 0.5 % (0.0-1.8) 09/11/17 03:43 Lymph # 1.4 K/mm3 (1.2-5.4) 09/11/17 03:43 [place] # 0.9 K/mm3 (0.0-0.8) H 09/11/17 03:43 Eos # 0.0 K/mm3 (0.0-0.4) 09/11/17 03:43 Baso # 0.0 K/mm3 (0.0-0.1) 09/11/17 03:43 Seg Neutrophils % 74.3 % (40.0-70.0) H 09/11/17 03:43 Seg Neutrophils # 6.8 K/mm3 (1.8-7.7) 09/11/17 03:43 VBG pH 7.163 (7.320-7.420) L* 09/10/17 Unknown Sodium 137 mmol/L (137-145) 09/11/17 07:25 Potassium 4.0 mmol/L (3.6-5.0) 09/11/17 07:25 Chloride 103.4 mmol/L (98-107) 09/11/17 07:25 Carbon Dioxide 23 mmol/L (22-30) D 09/11/17 07:25 Anion Gap 15 mmol/L 09/11/17 07:25 BUN 18 mg/dL (7-17) H 09/11/17 07:25 Creatinine 0.8 mg/dL (0.7-1.2) 09/11/17 07:25 Estimated GFR > 60 ml/min 09/11/17 07:25 BUN/Creatinine Ratio 23 % 09/11/17 07:25 Glucose 91 mg/dL (65-100) 09/11/17 07:25 POC Glucose 207 (70-105) H 09/12/17 11:44 Hemoglobin A1c 9.1 % (4-6) H 09/10/17 Unknown Lactic Acid 1.80 mmol/L (0.7-2.0) 09/10/17 17:36 Calcium 8.1 mg/dL (8.4-10.2) L 09/11/17 07:25 Phosphorus 2.60 mg/dL (2.5-4.5) D 09/10/17 23:18 Magnesium 1.90 mg/dL (1.7-2.3) 09/10/17 Unknown Urine Color Yellow (Yellow) 09/11/17 01:54 Urine Turbidity Clear (Clear) 09/11/17 01:54 Urine pH 5.0 (5.0-7.0) 09/11/17 01:54 Ur Specific [place] 1.010 (1.003-1.030) 09/11/17 01:54 Urine Protein <15 mg/dl mg/dL (Negative) 09/11/17 01:54 Urine Glucose (UA) >=500 mg/dL (Negative) 09/11/17 01:54 Urine Ketones 20 mg/dL (Negative) 09/11/17 01:54 Urine Blood Sm (Negative) 09/11/17 01:54 Urine Nitrite Neg (Negative) 09/11/17 01:54 Ur Reducing Substances Not Reportable 09/11/17 01:54 Urine Bilirubin Neg (Negative) 09/11/17 01:54 Urine Ictotest Not Reportable 09/11/17 01:54 Urine Urobilinogen < 2.0 mg/dL (<2.0) 09/11/17 01:54 Ur Leukocyte Esterase Neg (Negative) 09/11/17 01:54 Urine WBC (Auto) 1.0 /HPF (0.0-6.0) 09/11/17 01:54 Urine RBC (Auto) < 1.0 /HPF (0.0-6.0) 09/11/17 01:54 U Epithel Cells (Auto) 3.0 /HPF (0-13.0) 09/11/17 01:54 Urine Bacteria (Auto) 1+ /HPF (Negative) 09/11/17 01:54 Urine Mucus Few /HPF 09/11/17 01:54 Urine Yeast (Budding) Few /HPF 09/11/17 01:54 Salicylates 0.5 mg/dL (2.8-20.0) L 09/10/17 17:36 Urine Opiates Screen Presumptive negative 09/11/17 01:54 Urine Methadone Screen Presumptive negative 09/11/17 01:54 Acetaminophen < 15.0 ug/mL (10.0-30.0) 09/10/17 17:36 Ur Barbiturates Screen Presumptive negative 09/11/17 01:54 Ur Phencyclidine Scrn Presumptive negative 09/11/17 01:54 Ur Amphetamines Screen Presumptive negative 09/11/17 01:54 U Benzodiazepines Scrn Presumptive positive 09/11/17 01:54 Urine Cocaine Screen Presumptive negative 09/11/17 01:54 U Marijuana (THC) Screen Presumptive negative 09/11/17 01:54 Drugs of Abuse Note Disclamer 09/11/17 01:54
--- NOTE | 2017-09-12 18:56 | Consultation ---
CARDIOLOGY CONSULTATION The patient is seen in the Emergency Room. REFERRING PHYSICIAN: Hospitalist service. REASON FOR CONSULTATION: Advice an opinion regarding atrial fibrillation. HISTORY OF PRESENT ILLNESS: The patient is a pleasant 56-year-old female brought to the Emergency Room with altered mental status by her niece. Complains of weakness and high blood sugars. The patient's niece concerned about suicidal behavior. Upon approach. The patient denies any chest pain or shortness of breath. States she feels fine, just tired, no syncope or presyncope. No fevers, chills, nausea or vomiting. ALLERGIES: SHE HAS MULTIPLE DRUG AND FOOD ALLERGIES. THESE WERE ALL REVIEWED. MEDICATIONS: Inpatient and outpatient medications reviewed. REVIEW OF SYSTEMS: As per HPI. PAST MEDICAL HISTORY: History of heart surgery remove a tumor in 2012 at [facility]; details are unclear to me. Denies any history of coronary disease or cardiomyopathy. Other medical history includes diabetes, depression, osteoporosis, chronic pain syndrome and right breast cancer. PHYSICAL EXAMINATION: VITAL SIGNS: Blood pressure is 119/65, heart rate is in the 130s, atrial fibrillation, rapid ventricular response, O2 sats 90. She appears very comfortable, no apparent distress, alert and oriented x 2. HEENT: Sclerae are anicteric. NECK: Supple. No mass or JVD. CHEST: Clear to auscultation bilaterally. Good air movement. CARDIOVASCULAR: Tachy, S1, S2 irregular. ABDOMEN: Soft, nontender, nondistended. EXTREMITIES: No significant edema. SKIN: Warm, dry and intact. No rashes. LABORATORY DATA: EKG shows atrial fibrillation with rapid ventricular response. WBC is 9.1, hemoglobin 10.1, hematocrit 28.9, platelets 228. Sodium 133, bicarbonate 16, creatinine 1.1, glucose 219. Hemoglobin A1c is 9.1. CONCLUSION: The patient is a pleasant 56-year-old female: 1. Uncontrolled diabetes, diabetic ketoacidosis. 2. Acute metabolic encephalopathy. 3. Atrial fibrillation with rapid response. I believe this is new for patient. 4. Suicidal ideation. 5. History of cardiac tumor excision in 2012. At this point, the patient is actually stable. We will increase p.o. Cardizem dosage. Heart rate at this point is in the 100 range. We will check an echocardiogram. We will initiate Lovenox therapy as I do not see any contraindication to systemic anticoagulation, and hopefully as her DKA improves, her atrial fibrillation will also improve. Consider ischemic workup prior to discharge. My findings and plan of care discussed at length with the patient. All questions and concerns were addressed. Thank you for this consultation. JOB# [id number] SBJose/NTS
--- NOTE | 2017-09-12 19:36 | Consultation ---
History of Present Illness - Reason for Consult Consult date: 09/12/17 Reason for consult: psychiatric evaluation - Chief Complaint Chief complaint: 56 year old female seen in the ER. She is waiting for an ICU bed. She presented with weakness and AMS. She was determined to be in DKA and also A Fib with RVR. Shortly after arrival to the ER the record indicates the patient's niece expressed concerned that the patient might be suicidal. She further reports that she is concerned that the patient allowed herself to deliberately become ill by not taking her medications correctly. This was discussed with the patient . She denies suicidal ideation. She reports chronic depression and anxiety, including panic attacks. She takes valium 5mg bid and an unknown medication at 100mg daily for OCD. She admits to not eating right. She has a 30 year history of type 1 diabetes. She states she continues to take insulin and check her blood sugars like she should. She denies drug or alcohol use. No psychotic symptoms. No history of manic symptoms. Medications and Allergies Allergies Allergy/AdvReac Type Severity Reaction Status Date / Time zolpidem [From Ambien] Allergy Hives Verified 09/10/17 15:34 acetaminophen AdvReac Vomiting Verified 09/10/17 15:34 [From Tylenol-Codeine #3] butalbital AdvReac Rash Verified 09/10/17 15:34 codeine AdvReac Vomiting Verified 09/10/17 15:34 [From Tylenol-Codeine #3] ibuprofen [From Motrin] AdvReac Vomiting Verified 09/10/17 15:34 latex AdvReac Hives Verified 09/10/17 15:34 orange juice AdvReac Rash Verified 09/10/17 15:34 pravastatin AdvReac Hives Verified 09/10/17 15:34 Sulfa (Sulfonamide AdvReac Hives Verified 09/10/17 15:34 Antibiotics) tomato AdvReac Rash Verified 09/10/17 15:34 plastic tape AdvReac Hives Uncoded 09/10/17 15:34 Active Meds: Active Medications Bisacodyl (Dulcolax) 10 mg ID QDAY PRN PRN Reason: Constipation unrelieved by [facility] Dextrose (D50w (25gm) Syringe) 50 ml IV PRN PRN PRN Reason: Hypoglycemia Last Admin: 09/12/17 07:15 Dose: 50 ml Enoxaparin Sodium (Lovenox) 60 mg SUB-Q Q12HR KATHERINE Last Admin: 09/12/17 12:30 Dose: 60 mg Sodium Chloride (Nacl 0.9% 1000 Ml) 1,000 mls @ 100 mls/hr IV DIRECT KATHERINE Last Admin: 09/12/17 11:43 Dose: 100 mls/hr Sodium Chloride (Nacl 0.9% 1000 Ml) 1,000 mls @ 75 mls/hr IV DIRECT KATHERINE Diltiazem HCl (Cardizem/D5w 100mg/100ml) 100 mg in 100 mls @ 5 mls/hr IV TITR KATHERINE; 5 MG/HR PRN Reason: Protocol Last Admin: 09/12/17 13:21 Dose: 5 mg/hr, 5 mls/hr Insulin Aspart (Novolog) 0 units SUB-Q Q6HR KATHERINE PRN Reason: Protocol Last Admin: 09/12/17 18:11 Dose: 4 units Insulin Detemir (Levemir) 10 units SUB-Q QHS KATHERINE Last Admin: 09/11/17 23:17 Dose: 10 units Magnesium Hydroxide (Milk Of Magnesia) 30 ml PO Q4H PRN PRN Reason: Constipation Metoclopramide HCl (Reglan) 10 mg IV Q8H PRN PRN Reason: Nausea And Vomiting Morphine Sulfate (Morphine) 2 mg IV Q4H PRN PRN Reason: Pain, Moderate (4-6) Ondansetron HCl (Zofran) 4 mg IV Q8H PRN PRN Reason: N/V unrelieved by Reglan Last Admin: 09/11/17 22:47 Dose: 4 mg Oxycodone/Acetaminophen (Percocet 5/325) 1 tab PO Q6H PRN PRN Reason: Pain, Moderate (4-6) Last Admin: 09/11/17 22:46 Dose: 1 tab Pantoprazole Sodium (Protonix) 40 mg PO QDAY REPLACED BY [facility] Last Admin: 09/12/17 10:05 Dose: 40 mg Past psychiatric history - Past Medical History Past Medical History: atrial fib, diabetes - past Psychiatric treatment and history Psych: Anxiety, Depression psychiatric treatment history: managed by PCP denies suicide attempts She does not know the name of her OCD medication - Social History Social history: lives with family Mental Status Exam - Vital signs Last Vital Signs Temp 98.5 F 09/11/17 07:15 Pulse 97 H 09/12/17 16:00 Resp 14 09/12/17 16:00 BP 105/63 09/12/17 16:00 Pulse Ox 95 09/12/17 16:39 - Exam Orientation: time, place, person Affect: anxious Mood: congruent with affect Thought content: other (no SI/HI) Thought Process: Intact Perceptions: none Speech: normal rate and pattern Concentration: focused Motor activity: normal Level of consciousness: alert Memory: Intact Sleep Symptoms: Difficulty Falling Asleep Interaction: cooperative Results Result Diagrams: 09/11/17 03:43 09/11/17 07:25 Abnormal lab results 09/11/17 09/12/17 09/12/17 Range/Units 22:59 01:07 07:42 POC Glucose 183 H 119 H < 40 L (70-105) 09/12/17 09/12/17 09/12/17 Range/Units 08:46 11:44 18:06 POC Glucose 233 H 207 H 224 H (70-105) All other labs normal. Assessment and Plan Assessment and plan: Impression: Obsessive compulsive disorder by history depressive disorder Recommendations: Medications need to be reconciled. She prefers to stay on her current OCD medication (the bottle is locked up with her belongings). She takes valium 5mg bid at home but will hold off since she is taking 2 opiate based medications. Psych team will determine if she meets criteria for 1013 tomorrow.
[2017-09-12] MEDS: PERCOCET 5/325 PO PRN (21:41)
[2017-09-12] MEDS: LEVEMIR SUB-Q SCH (23:48)
[2017-09-13] MEDS: NOVOLOG SUB-Q SCH ×4 (02:46→17:42)
[2017-09-13] MEDS: NACL 0.9% 1000 ML 1,000 ML IV SCH ×2 (04:00→14:18)
[2017-09-13] MEDS: PERCOCET 5/325 PO PRN (05:32)
[2017-09-13] MEDS: CARDIZEM/D5W 100MG/100ML 100 MG/100 ML BAG IV SCH (08:43)
[2017-09-13] MEDS: PROTONIX PO SCH (10:45)
[2017-09-13] MEDS: LOVENOX SUB-Q SCH ×2 (10:53→22:00)
--- NOTE | 2017-09-13 13:11 | Progress Note ---
Subjective - Reason for Consult Consult date: 09/13/17 Reason for consult: Psychiatry Follow-up - Chief Complaint Chief complaint: "I am not suicidal" 56 year old female seen in the ER. She is waiting for an ICU bed. She presented with weakness and AMS. She was determined to be in DKA and also A Fib with RVR. Today patient is calm and cooperative during assessment. She stated that she isn 't suicidal. She stated that she never intentionally stop taking her medications to "." She denies pass suicidal attempts or SI's. She stated taking medication for depression and OCD prescribed by her PCP. She is aware why she was admitted to the hospital (RVR/A-Fib/Hyperglycemia). She denies SI/HI 's, AVH's, but rate her depression 5/10, with 10 being the worse. Mental Status Exam - Vital signs Last Vital Signs Temp 97.7 F 09/13/17 08:33 Pulse 84 09/13/17 10:00 Resp 18 09/13/17 12:31 BP 166/99 09/13/17 11:01 Pulse Ox 100 09/13/17 12:31 - Exam Narrative exam: MSE: Appearance: calm, cooperative Behavior: regular eye contact Speech: regular rate and tone Mood: "okay" Affect: congruent to mood Thought Process: circumstantial Thought Content: denies SI/HI's and AVH's Motor Activity: ambulatory Cognition: A/O x3 Insight: fair Judgment: fair Assessment and Plan Impression: Historical Dx: OCD/Depressive DO. Today patient is calm and cooperative during assessment. Recommendations/Plan: Continue 1013 until collateral information can be obtained from her niece. Medications need to be reconciled. She prefers to stay on her current OCD medication (the bottle is locked up with her belongings). She takes Valium 5mg bid at home but will hold off since she is taking 2 opiate based medications.
--- NOTE | 2017-09-13 15:07 | Progress Note ---
Assessment and Plan Assessment and plan: 56-year-old female with medical history significant for diabetes mellitus, depression, atrial fibrillation, s/p post cardiac tumor removal presented to ED for DKA and afib with RVR. Patient is on 1013 for concern of suicidal ideation. DKA - Managed according to DKA protocol and now resolved - Sliding scale insulin Metabolic encephalopathy - Resolved - And has dementia Afib with RVR, patient stated she has history of A. fib and cardiac tumor removal - Cardiology consulted - on therapeutic Lovenox - Echo is pending Suicidal ideation - Patient is 1013 and mental health consulted -GI prophylaxis: On Protonix DVT prophylaxis: SCDs and therapeutic Lovenox Full code Disposition: - Patient is still in the ED hold for CCU admit. The high probability of a clinically significant, sudden or life threatening deterioration of the [cardiovascular] system(s) required my full and direct attention, intervention and personal management. The aggregate critical care time was [31] minutes. This time is in addition to time spent performing reported procedures but includes the following: [x] Data Review and interpretation [x] Patient assessment and monitoring of vital signs [x] Documentation [x] Medication orders and management History Interval history: Patient was seen and evaluated this morning, patient is lying comfortably, no new complaints. Hospitalist Physical - Physical exam Narrative exam: Not in cardiopulmonary distress. The patient appeared friable. Vital signs as documented. Head exam is unremarkable. No scleral icterus . Neck is without jugular venous distension, thyromegaly, or carotid bruits. Lungs are clear to auscultation. Cardiac exam reveals irregular heart rate. Tachycardia. Abdominal exam reveals normal bowel sounds, no masses, no organomegaly and no aortic enlargement. Extremities are nonedematous and both femoral and pedal pulses are normal. SINGER BACK TENDER: Alert and oriented 3. No focal weakness. - Constitutional Vitals: Temp Pulse Resp BP Pulse Ox 97.7 F 106 H 15 136/74 97 09/13/17 08:33 09/13/17 14:00 09/13/17 14:00 09/13/17 14:00 09/13/17 14:00 General appearance: Present: no acute distress, well-nourished Results - Labs CBC & Chem 7: 09/11/17 03:43 09/11/17 07:25 Labs: Laboratory Last Values WBC 9.1 K/mm3 (4.5-11.0) 09/11/17 03:43 RBC 3.24 M/mm3 (3.65-5.03) L 09/11/17 03:43 Hgb 10.1 gm/dl (10.1-14.3) 09/11/17 03:43 Hct 28.9 % (30.3-42.9) L D 09/11/17 03:43 MCV 89 fl (79-97) 09/11/17 03:43 MCH 31 pg (28-32) 09/11/17 03:43 MCHC 35 % (30-34) H 09/11/17 03:43 RDW 12.9 % (13.2-15.2) L 09/11/17 03:43 Plt Count 228 K/mm3 (140-440) 09/11/17 03:43 Lymph % (Auto) 15.0 % (13.4-35.0) 09/11/17 03:43 [place] % (Auto) 10.1 % (0.0-7.3) H 09/11/17 03:43 Eos % (Auto) 0.1 % (0.0-4.3) 09/11/17 03:43 Baso % (Auto) 0.5 % (0.0-1.8) 09/11/17 03:43 Lymph # 1.4 K/mm3 (1.2-5.4) 09/11/17 03:43 [place] # 0.9 K/mm3 (0.0-0.8) H 09/11/17 03:43 Eos # 0.0 K/mm3 (0.0-0.4) 09/11/17 03:43 Baso # 0.0 K/mm3 (0.0-0.1) 09/11/17 03:43 Seg Neutrophils % 74.3 % (40.0-70.0) H 09/11/17 03:43 Seg Neutrophils # 6.8 K/mm3 (1.8-7.7) 09/11/17 03:43 VBG pH 7.163 (7.320-7.420) L* 09/10/17 Unknown Sodium 137 mmol/L (137-145) 09/11/17 07:25 Potassium 4.0 mmol/L (3.6-5.0) 09/11/17 07:25 Chloride 103.4 mmol/L (98-107) 09/11/17 07:25 Carbon Dioxide 23 mmol/L (22-30) D 09/11/17 07:25 Anion Gap 15 mmol/L 09/11/17 07:25 BUN 18 mg/dL (7-17) H 09/11/17 07:25 Creatinine 0.8 mg/dL (0.7-1.2) 09/11/17 07:25 Estimated GFR > 60 ml/min 09/11/17 07:25 BUN/Creatinine Ratio 23 % 09/11/17 07:25 Glucose 91 mg/dL (65-100) 09/11/17 07:25 POC Glucose 134 (70-105) H 09/13/17 11:45 Hemoglobin A1c 9.1 % (4-6) H 09/10/17 Unknown Lactic Acid 1.80 mmol/L (0.7-2.0) 09/10/17 17:36 Calcium 8.1 mg/dL (8.4-10.2) L 09/11/17 07:25 Phosphorus 2.60 mg/dL (2.5-4.5) D 09/10/17 23:18 Magnesium 1.90 mg/dL (1.7-2.3) 09/10/17 Unknown Urine Color Yellow (Yellow) 09/11/17 01:54 Urine Turbidity Clear (Clear) 09/11/17 01:54 Urine pH 5.0 (5.0-7.0) 09/11/17 01:54 Ur Specific [place] 1.010 (1.003-1.030) 09/11/17 01:54 Urine Protein <15 mg/dl mg/dL (Negative) 09/11/17 01:54 Urine Glucose (UA) >=500 mg/dL (Negative) 09/11/17 01:54 Urine Ketones 20 mg/dL (Negative) 09/11/17 01:54 Urine Blood Sm (Negative) 09/11/17 01:54 Urine Nitrite Neg (Negative) 09/11/17 01:54 Ur Reducing Substances Not Reportable 09/11/17 01:54 Urine Bilirubin Neg (Negative) 09/11/17 01:54 Urine Ictotest Not Reportable 09/11/17 01:54 Urine Urobilinogen < 2.0 mg/dL (<2.0) 09/11/17 01:54 Ur Leukocyte Esterase Neg (Negative) 09/11/17 01:54 Urine WBC (Auto) 1.0 /HPF (0.0-6.0) 09/11/17 01:54 Urine RBC (Auto) < 1.0 /HPF (0.0-6.0) 09/11/17 01:54 U Epithel Cells (Auto) 3.0 /HPF (0-13.0) 09/11/17 01:54 Urine Bacteria (Auto) 1+ /HPF (Negative) 09/11/17 01:54 Urine Mucus Few /HPF 09/11/17 01:54 Urine Yeast (Budding) Few /HPF 09/11/17 01:54 Salicylates 0.5 mg/dL (2.8-20.0) L 09/10/17 17:36 Urine Opiates Screen Presumptive negative 09/11/17 01:54 Urine Methadone Screen Presumptive negative 09/11/17 01:54 Acetaminophen < 15.0 ug/mL (10.0-30.0) 09/10/17 17:36 Ur Barbiturates Screen Presumptive negative 09/11/17 01:54 Ur Phencyclidine Scrn Presumptive negative 09/11/17 01:54 Ur Amphetamines Screen Presumptive negative 09/11/17 01:54 U Benzodiazepines Scrn Presumptive positive 09/11/17 01:54 Urine Cocaine Screen Presumptive negative 09/11/17 01:54 U Marijuana (THC) Screen Presumptive negative 09/11/17 01:54 Drugs of Abuse Note Disclamer 09/11/17 01:54
--- NOTE | 2017-09-13 16:37 | Progress Note ---
Assessment and Plan Initiate PO cardizem 30mg Q6H. D/c cardizem gtt following 2nd PO cardizem dose. Initiate amio with IV amio bolus x 1 and PO amio 400mg PO TID. Obtain CMP, Mg, and thyroid profile in AM. Await echo. The patient has been seen in conjunction with Dr. Cervantes who agrees with the assessment and plan of care. - Patient Problems (1) Atrial fibrillation with RVR Current Visit: Yes Status: Acute (2) DKA (diabetic ketoacidoses) Current Visit: Yes Status: Acute Qualifiers: Diabetes mellitus type: type 2 Diabetes mellitus complication detail: D (3) Encephalopathy Current Visit: Yes Status: Acute (4) History of benign cardiac tumor Current Visit: Yes Status: Acute (5) Suicidal ideation Current Visit: Yes Status: Acute Subjective Date of service: 09/13/17 Principal diagnosis: AFib with RVR Interval history: Pt resting comfortably in bed, denies any current complaints. 1013 hold continued. Cardizem gtt infusing. Remains in AFib with intermittent RVR on tele - HR spikes with activity. Objective Last Vital Signs Temp 98.4 F 09/13/17 15:46 Pulse 140 H 09/13/17 15:52 Resp 18 09/13/17 15:46 BP 128/79 09/13/17 15:46 Pulse Ox 98 09/13/17 15:46 - Physical Examination General: Appears Well HEENT: Positive: PERRL, Normocephaly, Mucus Membranes Moist Neck: Positive: neck supple, trachea midline Cardiac: Positive: irregularly irregular, S1/S2 Lungs: Positive: clear to auscultation Neuro: Positive: Grossly Intact, Cranial Nerve 2-12 Intact Abdomen: Positive: Unremarkable, Soft, Active Bowel Sounds. Negative: Tender Skin: Positive: Clear. Negative: Rash, Wound Musculoskeletal: No Fluid Collection, No Pain, Normal Range of Motion Extremities: Absent: edema - Imaging and Cardiology Echo: pending - Telemetry EKG Rhythm: Atrial Fibrillation
[2017-09-13] MEDS ORDERED: CORDARONE 150 MG in D5W 100 ML IV ONE (17:30)
[2017-09-13] MEDS: CARDIZEM PO SCH (17:50)
[2017-09-13] MEDS: CORDARONE PO SCH (19:27)
[2017-09-13] MEDS ORDERED: LOVENOX SUB-Q ONE (21:54)
[2017-09-13] MEDS: LEVEMIR SUB-Q SCH (21:59)
[2017-09-13] MEDS: MORPHINE IV PRN (22:06)
[2017-09-14] MEDS: NOVOLOG SUB-Q SCH ×4 (01:01→18:40)
[2017-09-14] MEDS: CARDIZEM PO SCH ×4 (01:22→18:46)
[2017-09-14 03:26] LABS: Alanine Aminotransferase 26 units/L (7-56); Albumin 2.9 g/dL (3.9-5); Albumin/Globulin Ratio 1.2 %; Alkaline Phosphatase 66 units/L (35-129); Anion Gap 15 mmol/L; BUN/Creatinine Ratio 15; Blood Urea Nitrogen 6 mg/dL (7-17); Calcium 7.6 mg/dL (8.4-10.2); Carbon Dioxide 27 mmol/L (22-30); Chloride 102.7 mmol/L (98-107); Glucose 100 mg/dL (65-100); Potassium 3.2 mmol/L (3.6-5.0); Sodium 141 mmol/L (137-145); Total Protein 5.3 g/dL (6.3-8.2)
[2017-09-14] MEDS: MORPHINE IV PRN (04:53)
[2017-09-14] MEDS: PROTONIX PO SCH (09:45)
[2017-09-14] MEDS: CORDARONE PO SCH ×2 (09:45→14:37)
[2017-09-14] MEDS ORDERED: CARDIZEM PO SCH (10:00)
[2017-09-14] MEDS ORDERED: MAGNESIUM SULFATE 2GM/50ML 2 GM/50 ML BAG IV ONE (10:00)
[2017-09-14] MEDS: K-DUR PO SCH ×3 (11:32→18:47)
[2017-09-14] MEDS: PERCOCET 5/325 PO PRN (11:33)
--- NOTE | 2017-09-14 11:38 | Progress Note ---
Subjective - Reason for Consult Consult date: 09/14/17 Reason for consult: Psychiatry Follow-up - Chief Complaint Chief complaint: "Thank you" 56 year old female seen in the ER. She is waiting for an ICU bed. She presented with weakness and AMS. She was determined to be in DKA and also A Fib with RVR. Today patient is calm and cooperative during assessment. Per collateral information from her niece Ashley Jefferson, she stated that her aunt the patient stopped eating for a day prior to being admitted to [facility]. She stated that her aunt had to give away 2 dogs because she was homeless at the time that made her sad, possibly making her depressed. Currently, the patient resides with Ms Jefferson and isn't homeless. She denies SI by her aunt. The patient denies SI/HI' s and AVH's. She rate her depression 3/10, with 10 being the worse. Patient stated that her PCP manage all her medications. Patient request a referral for outpatient psy services once discharged. Mental Status Exam - Vital signs Last Vital Signs Temp 98.4 F 09/13/17 15:46 Pulse 90 09/14/17 10:10 Resp 15 09/14/17 10:06 BP 141/77 09/14/17 10:06 Pulse Ox 85 09/14/17 10:06 - Exam Narrative exam: MSE: Appearance: calm, cooperative Behavior: regular eye contact Speech: regular rate and tone Mood: "well" Affect: congruent to mood Thought Process: logical Thought Content: denies SI/HI's and AVH's Motor Activity: ambulatory Cognition: A/O x3 Insight: fair Judgment: fair Assessment and Plan Impression: Historical Dx: OCD/Depressive DO. Today patient is calm and cooperative during assessment. Patient resides with her niece. Recommendations/Plan: Patient given outpatient psy services for [facility]. Patient stated that her PCP manage all her medications. Discussed generalized coping skills with patient.
--- NOTE | 2017-09-14 11:41 | Progress Note ---
Assessment and Plan Assessment 1. Atrial fibrillation with RVR. Duration is uncertain. However, patient claims that she was told that her heart rhythm was irregular sometime ago. 2. DKA 3. History of resection of a cardiac tumor. 4. Suicidal ideation. Plan 1. Potassium and magnesium supplementation 2. Await echo. 3. Increase Cardizem dose. If she remains in atrial fibrillation tomorrow, amiodarone will be discontinued altogether. Subjective Date of service: 09/14/17 Principal diagnosis: AFib with RVR, DKA Interval history: No complaints. She is in atrial fibrillation with a controlled ventricular rate this morning. Objective Vital Signs Last Vital Signs Temp 98.4 F 09/13/17 15:46 Pulse 90 09/14/17 10:10 Resp 15 09/14/17 10:06 BP 141/77 09/14/17 10:06 Pulse Ox 85 09/14/17 10:06 - Physical Examination General: No Apparent Distress HEENT: Positive: EOMI, Normocephaly, Mucus Membranes Moist Neck: Positive: neck supple, trachea midline Cardiac: Positive: irregularly irregular, S1/S2 Lungs: Positive: clear to auscultation Neuro: Positive: Grossly Intact Abdomen: Positive: Soft, Active Bowel Sounds. Negative: Tender Skin: Positive: Clear. Negative: Rash Musculoskeletal: Normal Range of Motion Extremities: Present: normal. Absent: edema - Labs and Meds Cardiac Enzymes 09/14/17 Range/Units 02:34 AST 23 (5-40) units/L Comprehensive Metabolic Panel 09/14/17 Range/Units 02:34 Sodium 141 (137-145) mmol/L Potassium 3.2 L (3.6-5.0) mmol/L Chloride 102.7 (98-107) mmol/L Carbon Dioxide 27 (22-30) mmol/L BUN 6 L (7-17) mg/dL Creatinine 0.4 L (0.7-1.2) mg/dL Glucose 100 (65-100) mg/dL Calcium 7.6 L (8.4-10.2) mg/dL AST 23 (5-40) units/L ALT 26 (7-56) units/L Alkaline Phosphatase 66 (35-129) units/L Total Protein 5.3 L (6.3-8.2) g/dL Albumin 2.9 L (3.9-5) g/dL - Imaging and Cardiology Echo: pending
[2017-09-14] MEDS ORDERED: LOVENOX SUB-Q ONE ×2 (11:42→11:59)
[2017-09-14] MEDS: LOVENOX SUB-Q SCH (11:55)
[2017-09-14] MEDS ORDERED: Fluarix Quad 2017-2018(36 MOS+) IM ONE (13:38)
--- NOTE | 2017-09-14 16:52 | Discharge Summary ---
Providers - Providers Date of Admission: 09/10/17 17:59 Date of discharge: 09/14/17 Attending physician: CRISTINA HAQUE 09/10/17 21:30 Consult to Dietitian/Nutrition [CONS] Routine Physician Instructions: Reason For Exam: Reason for Consult: Diet education 09/10/17 21:32 Consult to Mental Health [CONS] Routine Reason For Exam: suicidal ideation Place consult to:: yes Notified:: y Was contact made?: Yes 09/12/17 08:57 Consult to Physician [CONS] Routine Consulting Provider: [facility] Reason For Exam: afib with RVR Place consult to:: [facility] heart Notified:: Y Was contact made?: Yes If yes, spoke with:: DR Ld DIETZ Time called:: 09:30 Primary care physician: HAND [employer]ER Hospitalization Condition: Critical Disposition: DC-01 TO HOME OR SELFCARE - Discharge Diagnoses (1) Encephalopathy Status: Acute (2) DKA (diabetic ketoacidoses) Status: Acute Qualifiers: Diabetes mellitus type: type 2 Diabetes mellitus complication detail: D (3) Dehydration, moderate Status: Acute (4) Suicidal ideation Status: Acute (5) DVT prophylaxis Status: Acute Core Measure Documentation - Palliative Care Palliative Care/ Comfort Measures: Not Applicable - Core Measures Any of the following diagnoses?: none Exam - Constitutional Vitals: Temp Pulse Resp BP Pulse Ox 98.4 F 126 H 13 158/117 96 09/13/17 15:46 09/14/17 12:30 09/14/17 12:30 09/14/17 12:30 09/14/17 12:30 General appearance: Present: no acute distress, well-nourished - EENT Eyes: Present: PERRL ENT: hearing intact, clear oral mucosa - Neck Neck: Present: supple, normal ROM - Respiratory Respiratory effort: normal Respiratory: bilateral: CTA - Cardiovascular Heart rate: 80 Rhythm: irregularly irregular Heart Sounds: Present: S1 & S2. Absent: rub, click - Extremities Extremities: pulses symmetrical, No edema Peripheral Pulses: within normal limits - Abdominal General gastrointestinal: Present: soft, non-tender, non-distended, normal bowel sounds Female genitourinary: Present: normal - Integumentary Integumentary: Present: clear, warm, dry - Musculoskeletal Musculoskeletal: gait normal, strength equal bilaterally - Psychiatric Psychiatric: appropriate mood/affect, intact judgment & insight - Neurologic Neurologic: CNII-XII intact, moves all extremities Plan Activity: no restrictions Diet: diabetic Follow up with: PRIMARY CARE, [Primary Care Provider] - 3-5 Days
--- NOTE | 2017-09-14 18:30 | Event Note ---
Date: 09/14/17 Dr. Salas thank you for asking us to participate in the care of this patient. Patient said, she does not have any lung problem at this time. She said she does not need any pulmonary consultation at this time.She also told me she is going home today.
[2017-09-14 18:39] VITALS: BP 138/85
[2017-09-14] MEDS ORDERED: PNEUMOVAX 23 IM ONE (19:00)
== END 2017-09-14 20:00 | disposition home or self-care (01) | DRG 637 ==
LOC: ED 15:14 → CC1 17:59 → 3A 09-11 23:27 → CC1 09-12 17:36 → 4A 09-14 01:15 → 3A 09-14 11:18
PROVIDERS: ADMIT Internal Medicine; ATTEND Internal Medicine
DX: E11.10 Type 2 diabetes mellitus with ketoacidosis without coma (principal); G93.41 Metabolic encephalopathy; R45.851 Suicidal ideations; E86.0 Dehydration; I48.91 Unspecified atrial fibrillation; M19.90 Unspecified osteoarthritis, unspecified site; E11.9 Type 2 diabetes mellitus without complications; F42.9 Obsessive-compulsive disorder, unspecified; F32.9 Major depressive disorder, single episode, unspecified; Z79.899 Other long term (current) drug therapy; Z88.2 Allergy status to sulfonamides; Z88.6 Allergy status to analgesic agent; Z91.040 Latex allergy status; Z88.8 Allergy status to other drugs, medicaments and biological substances; Z91.018 Allergy to other foods; Z85.3 Personal history of malignant neoplasm of breast
CPT/HCPCS: 36415; 70450; 71010; 80048; 80053; 80307; 80320; 81001; 82140; 82805; 82962; 83036; 83735; 84100; 84439; 84443; 85025; 90686; 90732; 93005; 93010; 93306; 96361; 96374; 96376; 99291; G0480; J0282; J1650; J1815; J1818; J2270; J2405; J3475; J7030

== ENCOUNTER 2018-02-14 14:04 | Outpatient (CLI) | payer MEDICARE ==
--- NOTE | 2018-02-14 16:49 | XRay Report ---
FINAL REPORT EXAM: XR SPINE CERVICAL 2-3V HISTORY: CERVICALGIA TECHNIQUE: Three views cervical spine. PRIORS: None currently available. FINDINGS: Moderate degenerative disc C4-C5. Mild disc space narrowing with minimal grade 1 anterior subluxation at C3-C4. Otherwise the disc spaces are uniform. Vertebral body heights are intact. No fracture. Prevertebral soft tissues are unremarkable. No scoliosis. No rotatory component. No suspicious osseous lesions. Lateral masses C1 are aligned with C2. Aortic calcifications. Surgical artifacts are unremarkable. IMPRESSION: Degenerative discs.
--- NOTE | 2018-02-14 19:05 | XRay Report ---
FINAL REPORT EXAM: XR SPINE LUMBOSACRAL 4+V HISTORY: LOW BACK PAIN TECHNIQUE: AP, lateral and bilateral oblique views of the lumbar spine PRIORS: None. FINDINGS: The vertebral body heights and disc spaces are well maintained. The alignment is normal. No evidence for spondylolysis or spondylolisthesis is seen. Pedicles are intact bilaterally at all levels. The perispinal soft tissues demonstrate moderate calcification of aorta. Surgical clips in the right upper quadrant are consistent with a prior cholecystectomy. IMPRESSION: No acute abnormality in the lumbar spine.
--- NOTE | 2018-02-14 21:20 | XRay Report ---
FINAL REPORT EXAM: XR KNEE BILAT 3V HISTORY: PAIN IN BOTH KNEE TECHNIQUE: AP, oblique, and lateral views of each knee bilaterally PRIORS: None. FINDINGS: There is an uneven level of the tibial plateaus in the right knee. I am concerned for a medial tibial plateau fracture. There is a moderate right suprapatellar joint effusion. Overall, the bony mineralization is osteopenic. No definite left-sided fracture or bilateral dislocation is seen. Intramedullary darion is present in the left proximal tibia. IMPRESSION: Findings concerning for an acute right medial tibial plateau fracture. Moderate suprapatellar joint effusion on the right. Generalized bony osteopenia
== END 2018-02-14 14:05 | disposition home or self-care (01) ==
LOC: XRAY 14:04
PROVIDERS: ATTEND Physical Medicine & Rehabilitation
DX: M50.321 Other cervical disc degeneration at C4-C5 level (principal); M43.5X2 Other recurrent vertebral dislocation, cervical region; M85.869 Other specified disorders of bone density and structure, unspecified lower leg; M25.461 Effusion, right knee; M25.562 Pain in left knee; I70.0 Atherosclerosis of aorta
CPT/HCPCS: 72040; 72110